=== PATIENT | female | born 1990 | race African-American/Black ===

== ENCOUNTER 2017-12-02 10:59 | Emergency (ER) | payer OTHER ==
[~2017-12-02] VITALS: Ht 162.6 cm; Wt 60.3 kg
[2017-12-02] MEDS: LACTATED RINGERS 1,000 ML IV SCH ×2 (08:19→11:10)
[2017-12-02 09:08] LABS: BILIRUBIN,URINE NEGATIVE (NEGATIVE); BLOOD, URINE NEGATIVE (NEGATIVE); COLOR,URINE YELLOW (YELLOW); LEUKOCYTE ESTERASE ,URINE 1+ (NEGATIVE); NITRITE, URINE NEGATIVE (NEGATIVE); UGLUCOSE NEGATIVE (NEGATIVE)
[2017-12-02 09:24] LABS: APPEARANCE,URINE SLIGHTLY HAZY (CLEAR); RBC,URINE 0-5 (RARE) /HPF (0-5)
[2017-12-02 09:25] LABS: TRICHOMONAS,URINE Few /HPF (None Seen)
[2017-12-02 09:39] LABS: BARBITURATE, URINE NEG. ng/ml (NEG <=200); BENZODIAZEPINE, URINE NEG. ng/mL (NEG <=200); CANNABINOID, URINE POS. ng/mL (NEG <=50); COCAINE, URINE NEG. ng/mL (NEG <=300); OPIATE, URINE NEG. ng/mL (NEG <=2000); PHENCYCLIDINE SCREEN,URINE NEG. ng/mL (NEG <=25)
[2017-12-02 10:29] VITALS: BP 108/64
[2017-12-02 11:01] VITALS: BP 111/60
[2017-12-02 11:41] VITALS: BP 111/60
== END 2017-12-02 11:38 | disposition home or self-care (01) ==
LOC: MED 10:59 → EDSTATUS 10:59 → MED 11:38
DX: O23.42 Unspecified infection of urinary tract in pregnancy, second trimester (principal); O26.892 Other specified pregnancy related conditions, second trimester; R10.30 Lower abdominal pain, unspecified; O99.332 Smoking (tobacco) complicating pregnancy, second trimester; Z3A.26 26 weeks gestation of pregnancy; Z88.6 Allergy status to analgesic agent; Z88.8 Allergy status to other drugs, medicaments and biological substances
CPT/HCPCS: 76805; 80305; 81001; 87086; 96360; 96361; 99285; J7120; Q0092